=== PATIENT | female | born 1985 ===

== ENCOUNTER 2022-01-20 12:58 | Emergency (ER) | payer SELFPAY ==
[~2022-01-20] VITALS: Ht 160 cm; Wt 59.1 kg
[2022-01-20 13:11] VITALS: BP 112/58
== END 2022-01-20 14:08 | disposition left against medical advice (07) ==
LOC: EMS 12:58
DX: R07.89 Other chest pain (principal); Z53.21 Procedure and treatment not carried out due to patient leaving prior to being seen by health care provider
CPT/HCPCS: 93005

== ENCOUNTER 2022-02-28 01:56 | Emergency (ER) | payer SELFPAY ==
[~2022-02-28] VITALS: Ht 160 cm; Wt 59.1 kg
[2022-02-28 01:58] VITALS: BP 134/90
== END 2022-02-28 02:41 | disposition left against medical advice (07) ==
LOC: EMS 01:58
DX: Z53.21 Procedure and treatment not carried out due to patient leaving prior to being seen by health care provider (principal)